=== PATIENT | male | born 1935 | race Caucasian/White ===

== ENCOUNTER 2016-11-03 06:18 | Inpatient (IN) | payer MEDICARE, BC ==
[2016-11-03] MEDS ORDERED: Protamine Sulfate 50 MG/5 ML VIAL ONE (06:32)
[2016-11-03] MEDS ORDERED: Heparin 5,000 UNITS/ML VIAL ONE (06:32)
[2016-11-03 06:48] LABS: #Basophils 0.1 thou/uL (0.0-0.2); #Eosinphils 0.4 thou/uL (0.0-0.7); #Lymphocytes 1.5 thou/uL (1.20-3.40); #Monocytes 0.7 thou/uL (0.11-0.59); #Neutrophils 4.3 thou/uL (1.40-6.50); %Basophils 1.8 % (0.0-1.0); %Eosinophils 5.9 % (0.0-10.0); %Lymphocytes 21.4 % (21.0-51.0); %Monocytes 9.5 % (0.0-10.0); Hematocrit 42.9 % (42.0-52.0); Mean Platelet Volume 7.3 fL (7.4-10.4); Red Blood Cell (RBC) Count 5.59 mill/uL (4.70-6.10); White Blood Cell (WBC) Count 6.9 thou/uL (4.8-10.8)
[2016-11-03 07:10] LABS: Anion Gap 13 mmol/L (10-20); BUN (Urea Nitrogen) 17 mg/dL (8.4-25.7); Calc. Creatinine Clearance 52 mL/min (70-130); Calcium 9.8 mg/dL (7.8-10.44); Carbon Dioxide 24 mmol/L (23-31); Chloride 103 mmol/L (98-107); Estimated GFR-MDRD 65
[2016-11-03] MEDS ORDERED: Fentanyl 100 MCG/2 ML VIAL ONE (07:10)
[2016-11-03] MEDS ORDERED: Norepinephrine 4 MG/4 ML VIAL ONE (07:23)
[2016-11-03] MEDS ORDERED: Phenylephrine 10 MG/NS 250 ML 250 ML ONE (07:23)
[2016-11-03] MEDS ORDERED: ePHEDrine/0.9% NaCl/PF SYRINGE 50 mg/10 ml ONE (07:38)
[2016-11-03] MEDS ORDERED: Lidocaine 1% PF 5 ML VIAL ONE (07:38)
[2016-11-03] MEDS ORDERED: Propofol 200 MG/20 ML VIAL ONE (07:38)
[2016-11-03] MEDS ORDERED: Ondansetron HCl/PF 4 MG/2 ML Vial ONE (07:38)
[2016-11-03] MEDS ORDERED: Glycopyrrolate 0.2 MG/ML 5 ML SYRINGE ONE (07:38)
[2016-11-03] MEDS ORDERED: PHENYLEPHRINE-NS 100 MCG/ML 10 ML SYRINGE ONE (07:38)
--- NOTE | 2016-11-03 09:20 | OP ---
DATE OF PROCEDURE: 11/03/2016 PREOPERATIVE DIAGNOSIS: Critical left carotid stenosis. POSTOPERATIVE DIAGNOSIS: Critical left carotid stenosis. PROCEDURE: Left carotid endarterectomy with bovine patch angioplasty. SURGEON: Dr. Flo Dang ANESTHESIA: General. ESTIMATED BLOOD LOSS: 100. FINDINGS: The patient had a high grade stenosis and in fact, I was unable to cut through the stenos is due to the very small orifice. PROCEDURE IN DETAIL: After adequate anesthesia had been obtained, ultrasound was used to guide the incision and the patient was then prepped and draped. Incision was made and carried through the [facility] tysma rotating sternocleidomastoid muscle laterally. Facial vein was ligated and divided and 7500 u nits of heparin were given. Clamps were applied, arteriotomy performed, and a 12-Armenian shunt was p laced. Following this, endarterectomy was performed with nice tapering distally. The area was thor oughly irrigated and any loose debris removed. A bovine patch was then secured with a running 6-0 P rolene suture. Prior to completing the suture line, the shunt was removed, vessels back flushed and forward flushed. Flow was then restored and additional sutures were placed as needed. Following g ood hemostasis and partial heparin reversal, the wound was irrigated and closed in layers.
[2016-11-03] MEDS ORDERED: Promethazine HCl 25 MG/ML VIAL SLOW IVP PRN (09:44)
[2016-11-03] MEDS ORDERED: Promethazine HCl 25 MG/ML VIAL IM PRN (09:44)
[2016-11-03] MEDS ORDERED: Ondansetron HCl/PF 4 MG/2 ML Vial IVP PRN ×2 (09:44→10:36)
[2016-11-03] MEDS ORDERED: HYDROcodone/Acetaminophen 5/325 mg Tablet PO PRN ×2 (10:36)
[2016-11-03] MEDS ORDERED: Fentanyl 100 MCG/2 ML VIAL SLOW IVP PRN ×2 (10:36)
[2016-11-03] MEDS ORDERED: Acetaminophen 325 MG TAB PO PRN (10:36)
[2016-11-03] MEDS ORDERED: Nitroglycerin 50 MG/250 ML BOT 250 ML IVPB PRN (10:36)
[2016-11-03] MEDS ORDERED: DOPamine 400 MG/D5W 250 ML 250 ML IVPB PRN (10:36)
[2016-11-03] MEDS ORDERED: Sodium Chloride 0.9% 1,000 ML IV SCH (10:36)
[2016-11-03] MEDS ORDERED: Phenylephrine 10 MG/NS 250 ML 250 ML IVPB PRN (10:36)
[2016-11-03 11:02] VITALS: BMI 24.1
[2016-11-03 11:07] VITALS: BP 116/43
[2016-11-03] MEDS ORDERED: Amlodipine Besylate/Benazepril 5/10 Capsule PO SCH (12:00)
[2016-11-03] MEDS ORDERED: Simvastatin 5 MG TAB PO SCH (21:00)
--- NOTE | 2016-11-04 06:30 | DIS ---
HOSPITAL COURSE: The patient was admitted 11/03/2016 where he underwent left carotid endarterectomy for a critical left carotid stenosis. Postoperatively, he did well, neurologically intact. His he art rate varied from 45-55. Blood pressure was in the 110-120 range. He was able to void without d ifficulty. He will be discharged home today to resume his admitting medicines of aspirin, statin, a nd antihypertensive. No prescriptions have been written. He will follow up with me in 2 weeks.
[2016-11-04 07:09] VITALS: TEMP 98
[2016-11-04] MEDS ORDERED: Amlodipine Besylate/Benazepril 5/10 Capsule PO SCH (09:00)
--- NOTE | 2016-11-04 12:35 | PQF ---
[employer] [facility] PadminiOHIOHEALTH PICKERINGTON METHODIST HOSPITALANGEL MURRAY MARIO WOLF MD [id number] [id number] CLINICAL DOCUMENTATION IMPROVEMENT CLARIFICATION FORM: ICD-10 Updated PLEASE DO AN ADDENDUM TO THE PROGRESS NOTE WITH ANY DOCUMENTATION UPDATES OR ADDITIONS AND CARRY THROUGH TO DC SUMMARY. THANK YOU. DATE: 11-04-16 ATTN: DR. HILL Please exercise your independent, professional judgment in responding to the clarification form. Clinical indicators are provided on the bottom of this form for your review Please check appropriate box(s): [ ] Common Carotid Artery, Left [ ] External Carotid Artery. Left [ ] Internal Carotid Artery, Left [ ] Other diagnosis [ ] Unable to determine CLINICAL INDICATORS - SIGNS/ SYMPTOMS / LABS OP NOTE: CRITICAL LEFT CAROTID STENOSIS RISK FACTORS OP NOTE: CRITICAL LEFT CAROTID STENOSIS TREATMENT OP NOTE: LEFT CAROTID ENDARTERECTOMY W/ BOVINE PATCH ANGIOPLASTY THANK YOU, PETRONA (This form is maintained as a part of the permanent medical record) 2015 [employer]. All Rights Reserved Petrona Maya RN, BS [email or web address] [facility] CENTERGinna
[2016-11-07 13:48] LABS: Oxyhemoglobin 97.9 % (94.0-97.0); Sodium 139 mmol/L (135-148)
[2016-11-07 13:58] LABS: Mode OR ABG; Vent YES
== END 2016-11-04 09:28 | disposition home or self-care (01) | DRG 39 ==
LOC: SURG A 06:18 → CCU 10:09
PROVIDERS: ADMIT Thoracic Surgery (Cardiothoracic Vascular Surgery); ATTEND Thoracic Surgery (Cardiothoracic Vascular Surgery)
PROC: 03CL0ZZ Extirpation of Matter from Left Internal Carotid Artery, Open Approach (ICD-10-PCS; principal; 2016-11-03)
PROC: 03UL0KZ Supplement Left Internal Carotid Artery with Nonautologous Tissue Substitute, Open Approach (ICD-10-PCS; 2016-11-03)
DX: I65.23 Occlusion and stenosis of bilateral carotid arteries (principal); I10 Essential (primary) hypertension; E78.2 Mixed hyperlipidemia
CPT/HCPCS: 36415; 80048; 82805; 85025; 93005; 93010; J1642; J1644; J2001; J2405; J2704; J2720; J3010